=== PATIENT | female | born 1985 | race Caucasian/White ===

== ENCOUNTER 2021-07-04 14:29 | Observation (INO) | payer OTHER, SELFPAY ==
[2021-07-04] VITALS (17 sets, daily range): BP systolic 104–131; BP diastolic 72–84; PULSE 96–114; RESP 12–18; TEMP 36.1–37.2; O2SAT 97–100
--- NOTE | ~2021-07-04 | CT_ITS ---
EXAMINATION: CT abdomen pelvis wo con DATE: 07/04/2021 19:13 INDICATION: Right lower quadrant and right flank pain for 3 days TECHNIQUE: Computed tomography (CT) of the abdomen and pelvis was performed without intravenous contr ast. Automated exposure control and iterative reconstruction technique were employed. Exam dose: 179 .45 mGy-cm total exam DLP. COMPARISON: 09/28/2018 CT abdomen pelvis FINDINGS: There is minimal dependent atelectasis of the lower lobes. Normal heart size. No pericardial or pleural effusion. Small sliding hiatal hernia. The liver, spleen, pancreas, gallbladder, bile and pancreatic ducts are unremarkable on this limited noncontrast examination. No adrenal mass lesion is evident. There is right perinephric fluid and stranding. No urinary tract calculus or hydroureteronephrosis is evident on either side. The urinary bladder is unremarkable. Mild free fluid is noted in the right posterior cul-de-sac. Normal caliber of the abdominal aorta. No intraperitoneal or retroperitoneal or pelvic mass lesion or adenopathy or ascites is noted. Normal appendix. No bowel obstruction, bowel wall thickening, pneumatosis or intraperitoneal free air . No suspicious osteolytic or osteoblastic lesions are noted. IMPRESSION: Right perinephric stranding and mild fluid accumulation, without hydronephrosis. Finding s suggest right pyelonephritis. (If there is concern for possible urinary tract calculus or obstruction, consider repeat examination with IV contrast material, with delayed KUB if necessary) Mild nonspecific free fluid in the right posterior cul-de-sac Normal appendix Reviewed, dictated and finalized at [facility]. Reviewed, dictated and finalized at location [facility]. IMPRESSION: Right perinephric stranding and mild fluid accumulation, without h ydronephrosis. Findings suggest right pyelonephritis. (If there is concern for possible urinary tract calculus or obstruction, consid er repeat examination with IV contrast material, with delayed KUB if necessary) Mild nonspecific free fluid in the right posterior cul-de-sac Normal appendix
[2021-07-04 14:58] LABS: Basophils Absolute Auto 0.1 K/mm3 (0.0-0.1); Basophils Percent Auto 0.4 % (0.2-1.2); Eosinophils Percent Auto 0.1 % (0-4.4); Hemoglobin 14.8 g/dL (12.0-15.0); Immature Granulocyte Absolute 0.16 K/mm3 (0.00-0.031); Immature Granulocyte Percent A 0.8 % (0-0.5); Lymphocytes Percent Auto 2.8 % (18.3-44.2); Mean Corpuscular HGB Conc 32.2 g/dl (32-36); Mean Corpuscular Hemoglobin 31.4 pg (26-34); Mean Corpuscular Volume 97.5 fl (80-100); Mean Platelet Volume 10.9 fl (7.4-10.4); Monocytes Absolute Auto 0.6 K/mm3 (0.1-0.6); Monocytes Percent Auto 2.8 % (2.6-8.5); Neutrophils Absolute Auto 19.7 K/mm3 (1.3-6.7); Neutrophils Percent Auto 93.1 % (45.5-73.1); Platelet Count Result 357 k/mm3 (150-375); Red Blood Count 4.72 M/mm3 (4.2-5.4); White Blood Count 21.1 K/mm3 (4.5-10.0)
--- NOTE | 2021-07-04 15:03 | ED.ABDPAIN ---
HPI - Abdominal Pain General Chief Complaint: Abdominal Pain <ANA LUISA Pollock Last Filed: 07/04/21 21:53> Stated Complaint: abd pain, nausea, poss <Palmira Munoz PA-C - Last Filed: 07/04/21 21:53> Time Seen by Provider: 07/04/21 15:02 <Palmira Munoz PA-C - Last Filed: 07/04/21 21:53> Source: patient <Palmira Munoz PA-C - Last Filed: 07/04/21 21:53> Limitations: no limitations <ANA LUISA Pollock Last Filed: 07/04/21 21:53> History of Present Illness HPI narrative: 25-year-old woman here for evaluation of right lower quadrant and flank pain started several days ago. She states that she had a subjective fever today the fever chills as well. She has been treating herself at home with ibuprofen or Tylenol the pain has been increasing. It is worse when she walks. Denies any urinary symptoms, no history of kidney stones. <ANA LUISA Pollock Last Filed: 07/04/21 21:53> Pain Consistency: constant <ANA LUISA Pollock Last Filed: 07/04/21 21:53> Location: RLQ and R flank <ANA LUISA Pollock Last Filed: 07/04/21 21:53> Quality: stabbing <ANA LUISA Pollock Last Filed: 07/04/21 21:53> Related Data Allergies/Adverse Reactions: Allergies Allergy/AdvReac Type Severity Reaction Status Date / Time cefaclor Allergy Mild Hives Verified 07/04/21 14:42 cephalexin Allergy Mild Hives Verified 07/04/21 14:42 trazodone Allergy Unknown SEIZURE Verified 07/04/21 14:42 <ANA LUISA Pollock Last Filed: 07/04/21 21:53> Review of Systems Review of Systems: All systems reviewed & are unremarkable except as noted in HPI and below <ANA LUISA Pollock Last Filed: 07/04/21 21:53> [facility] Past Medical History Medical History: Medical History Anxiety Successful prior treatment for illicit drug use Crack cocaine. 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 She currently lives with her 8-year-old daughter. She has 2 older sons who she lost custody of due to issues of domestic abuse. She has smoked a pack of cigarettes per day since the age of 16. She drinks 2 beers every other night. She denies any current illicit substance use but used to smoke crack cocaine. She reports that she has been clean since she was 20 or 21 years old. Primary care physician: Dr. Federico Blue Code status: Full code Surrogate decision maker: Mother Smoking packs per day: 1 Smoking cigarettes per day: 20.0 Years smoked: 15 Smoking pack-years: 15.00 Smoking status: Current every day smoker Alcohol intake: current Drinks per week: 3 Substance use: former Substance use type: crack/cocaine Occupation/Education: unemployed Gender identity (if verbalized by the patient): Female Sexual Orientation (if Verbalized by the Patient): Straight or Heterosexual Spiritual care concerns: No <Palmira Munoz PA-C - Last Filed: 07/04/21 21:53> Exam Const: General: healthy appearing and alert <Palmira Munoz PA-C - Last Filed: 07/04/21 21:53> Orientation/consciousness: patient oriented x3 <Palmira Munoz PA-C - Last Filed: 07/04/21 21:53> HENMT: Head: normal to inspection <
[2021-07-04 15:16] LABS: Platelet Estimate Adequate (Adequate)
[2021-07-04 15:17] LABS: Ovalocytes 1+ (NORMAL)
[2021-07-04 15:48] LABS: Alanine Aminotransferase 16 U/L (4-35); Albumin Level 3.7 g/dL (3.5-5.1); Alkaline Phosphatase 87 U/L (38-126); Anion Gap 5 mmol/L (8-16); Aspartate Amino Transferase 24 U/L (14-36); Bilirubin,Total 0.5 mg/dL (0.2-1.3); Blood Urea Nitrogen 17 mg/dL (7-17); Carbon Dioxide 27 mmol/L (22-30); Chloride 103 mmol/L (98-107); Estimated CRCL calculation 77 ml/min; Estimated Glomerular Filt Rate > 60; Glucose 94 mg/dL (65-110); Lipase 19 U/L (23-300); Potassium 4.2 mmol/L (3.4-5.0); Sodium 135 mmol/L (137-145)
[2021-07-04] MEDS: KETOROLAC 30 MG/ML VIAL (*BKC) IV PUSH (16:18)
[2021-07-04] MEDS: SODIUM CHLORIDE 0.9% IV 1,000 ML 999 ML IV CONT (16:19)
[2021-07-04 17:33] LABS: Add Urine Microscopic? YES; Appearance Urine Cloudy (Clear); Bacteria Urine Trace /hpf; Bilirubin Urine Negative (Negative); Blood Urine 2+ (Negative); Color Urine Yellow (Yellow); Glucose Urine UA Negative (Negative); Ketones Urine Trace mg/dL (Negative); Leukocyte Esterase Ur 3+ LEU/UL (Negative); Mucus Urine Rare /lpf; Nitrate Urine Positive (Negative); Protein Urine 2+ mg/dL (Negative); RBC Urine 21-50 /hpf (0-2); Specific Grav Ur 1.024 (1.001-1.035); Squamous Epithelial Cell Urine Moderate /hpf (Few); Urobilinogen Urine Negative mg/dL (<2.0); WBC Clumps Urine Present /HPF; WBC Urine >75 /hpf
[2021-07-04] MEDS: CIPROFLOXACIN 400 MG/D5W 200ML 200 ML 200 MG IVPB (18:09)
[2021-07-04] MEDS: HYDROmorphone HCL INJ (*CRX) 1 MG/ML SYR IV PUSH ×2 (18:09→22:27)
[2021-07-04] MEDS: ONDANSETRON INJ 4 MG/2 ML VIAL IV PUSH (18:23)
--- NOTE | 2021-07-04 21:39 | PC.NURSE ---
mother's number Gauri [phone]
[2021-07-04] MEDS: SODIUM CHLORIDE 0.9% IV 1,000 ML 125 ML IV CONT (22:21)
--- NOTE | 2021-07-04 22:29 | PM.IMHP ---
H&P: HPI History of Present Illness Date/Time: 07/04/21 21:40 Chief Complaint: Right lower back pain Narrative: 35-year-old female with a past medical history of anxiety, depression, illicit substance abuse, tobacco abuse and frequent UTIs presented to the ER via private vehicle due to right flank pain and right lower abdominal pain. The patient reports that she has been feeling ill for 3 days. The she started having right flank pain that is sharp and constant in nature at that time. The pain is gotten progressively worse over the last 3 days. The pain radiates into the right anterior abdomen with movement. She also reports that his pain is worse with deep breathing. The pain is a 10/10 in intensity at its worst is currently a 9/10 in intensity. It is accompanied by urinary frequency and urgency for the last 5 days. She has been feeling feverish in a temperature of 99? at home. She reports that her last UTI was 1 month ago. She did not seek medical care at that time but was having dysuria and frequency and urgency then and treated with cranberry juice. She reported that yesterday while having sex with her partner she was having dyspareunia. She reports that the pain was so bad that she became clammy and started to black out. She reports that her significant other as multiple sex partners and she has heard a rumor that he may have HIV. She denies any vaginal discharge. She is requesting to be tested for HIV. She has been having a mild frontal headache today. She has been having generalized body aches when she started to feel feverish earlier today. She has been had decreased appetite but denies any nausea or vomiting. She thinks that she has lost fiber 6 lb since she started feeling ill. She has been feeling lightheaded with standing. She took Tylenol and ibuprofen this morning without improvement in her pain. She has not received the COVID-19 vaccine. She reports that she has Seroquel prescribed as needed for sleep. However it appears that this has not been refilled since December. She also has p.r.n. clonazepam prescribed in the past but it also has not been filled since December. Review of Systems Review of Systems: 12 systems were reviewed with pertinent positives and negatives per HPI. Except as documented in the HPI, all other systems were reviewed and are negative. [facility] Past Medical History Medical History Anxiety Successful prior treatment for illicit drug use Crack cocaine. 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 She currently lives with her 8-year-old daughter. She has 2 older sons who she lost custody of due to issues of domestic abuse. She has smoked a pack of cigarettes per day since the age of 16. She drinks 2 beers every other night. She denies any current illicit substance use but used to smoke crack cocaine. She reports that she has been clean since she was 20 or 21 years old. Primary care physician: Dr. Federico Blue Code status: Full code Surrogate decision maker: Mother Smoking packs per day: 1 Smoking cigarettes per day: 20.0 Years smoked: 15 Smoking pack-years: 15.00 Smoking status: Current every day smoker Alcohol intake: current Drinks per week: 3 Substance use: former Substance use type: crack/cocaine Occupation/Education: unemployed Gender identity (if verbalized by the patient): Female Sexual Orientation (if Verbalized by the Patient): Straight
--- NOTE | 2021-07-04 22:37 | PC.NURSE ---
This patient, Nguyen Molina, was admitted to Medical Room 340-01. Patient/family oriented to hospital policies and general routines including ID bracelet, bed and alarms, visiting hours, pain management, procedures, bathroom and other care routines, personal items, smoking policy, room service/diet, and visiting hours. Information on how to activate the Rapid Response Team has been discussed. Patient/Family are encouraged to report perceived risks to care and to ask questions if they do not understand what they are told or what they should do.
[2021-07-05] MEDS: ACETAMINOPHEN/ASPIRIN/CAFFEINE 250-250-65 MG TABLET 1 TABLET PO ×2 (00:27→07:36)
[2021-07-05] MEDS: NICOTINE (*PBKC) 4 MG GUM PO (00:27)
[2021-07-05 01:12] LABS: HIV 1/2 Ab P24 Ag Result Negative (Negative)
[2021-07-05] MEDS: QUEtiapine FUMARATE 25 MG TABLET 50 MG PO (01:21)
[2021-07-05] MEDS: clonazePAM (*CRX) 0.5 MG TABLET 1 MG PO (01:21)
[2021-07-05] MEDS: CIPROFLOXACIN 400 MG/D5W 200ML 200 ML 200 MG IVPB (05:06)
[2021-07-05 06:00] VITALS: BP 106/72; PULSE 117; RESP 14; TEMP 36.9; O2SAT 98
[2021-07-05 06:17] LABS: Basophils Absolute Auto 0.1 K/mm3 (0.0-0.1); Basophils Percent Auto 0.3 % (0.2-1.2); Eosinophils Percent Auto 0.1 % (0-4.4); Hematocrit 38.6 % (37.0-47.0); Hemoglobin 12.4 g/dL (12.0-15.0); Immature Granulocyte Absolute 0.95 K/mm3 (0.00-0.031); Lymphocytes Absolute Auto 0.83 K/mm3 (0.9-3.2); Lymphocytes Percent Auto 3.5 % (18.3-44.2); Mean Corpuscular HGB Conc 32.1 g/dl (32-36); Mean Corpuscular Hemoglobin 31.2 pg (26-34); Mean Platelet Volume 10.2 fl (7.4-10.4); Monocytes Absolute Auto 1.7 K/mm3 (0.1-0.6); Monocytes Percent Auto 7.3 % (2.6-8.5); Neutrophils Absolute Auto 20.1 K/mm3 (1.3-6.7); Neutrophils Percent Auto 84.8 % (45.5-73.1); Platelet Count Result 226 k/mm3 (150-375); Red Blood Count 3.98 M/mm3 (4.2-5.4); White Blood Count 23.7 K/mm3 (4.5-10.0)
[2021-07-05 06:22] LABS: Anion Gap 6 mmol/L (8-16); Blood Urea Nitrogen 14 mg/dL (7-17); Calcium 7.8 mg/dL (8.4-10.2); Carbon Dioxide 23 mmol/L (22-30); Chloride 103 mmol/L (98-107); Estimated CRCL calculation 77 ml/min; Estimated Glomerular Filt Rate > 60; Glucose 81 mg/dL (65-110); Potassium 3.1 mmol/L (3.4-5.0); Sodium 132 mmol/L (137-145)
[2021-07-05] MEDS: HYDROmorphone HCL INJ (*CRX) 1 MG/ML SYR IV PUSH ×2 (06:27→10:41)
[2021-07-05 07:03] LABS: Thyroid Stimulating Hormone Reflex 0.477 uIU/mL (0.465-4.68)
[2021-07-05] MEDS: KETOROLAC 30 MG/ML VIAL (*BKC) IV PUSH (07:36)
[2021-07-05] MEDS: SODIUM CHLORIDE 0.9% IV 1,000 ML 125 ML IV CONT (07:39)
[2021-07-05 08:00] VITALS: BP 103/68; PULSE 113; RESP 18; TEMP 37.9; O2SAT 100
--- NOTE | 2021-07-05 10:46 | PC.NURSE ---
Patient going to leave MD SARA aware.
--- NOTE | 2021-07-05 12:41 | PC.NURSE ---
Patient stated she has had the amoxicillin before with no reaction/no issues.
[2021-07-06 07:23] LABS: Rapid Plasma Reagin Non-Reactive (NonReactive)
--- NOTE | 2021-07-16 21:03 | PM.EVENT ---
Event Note Event Note Event Note: Patient left AMA 07/05/2021.
--- NOTE | 2021-08-06 19:23 | PM.DS ---
DS: Admitting Diagnosis Discharge Date 07/05/21 Admitting Diagnosis (1) Pyelonephritis: Code(s): N12 - Tubulo-interstitial nephritis, not specified as acute or chronic Status: Acute Assessment and Plan: Right-sided pyelonephritis. Blood cultures and urine cultures been obtained and are pending. Continue empiric antibiotic therapy with Cipro. The importance of postcoital voiding and appropriate wiping were discussed with patient. Measures such as cranberry juice consumption and or azo tablets was discussed with the patient for preventative measures future. Given reports of dyspareunia and possible STD exposure urine will be sent for GC and chlamydia testing. (2) Sepsis: Qualifiers: Sepsis type: sepsis due to unspecified organism Sepsis acute organ dysfunction status: without acute organ dysfunction Qualified Code(s): A41.9 - Sepsis, unspecified organism Code(s): A41.9 - Sepsis, unspecified organism Status: Acute Assessment and Plan: Mild sepsis criteria present on admission with leukocytosis and tachycardia in the setting of pyelonephritis. Blood cultures and urine cultures pending. Repeat CBC in a.m. (3) Exposure to STD: Code(s): Z20.2 - Contact with and (suspected) exposure to infections with a predominantly sexual mode of transmission Status: Acute Assessment and Plan: She is concerned that her sexual partner may have HIV. She is requesting testing. Will also test patient for syphilis, GC and chlamydia. DS: Discharge Diagnosis Discharge Diagnosis (1) Exposure to STD: Code(s): Z20.2 - Contact with and (suspected) exposure to infections with a predominantly sexual mode of transmission Status: Acute Assessment and Plan: She is concerned that her sexual partner may have HIV. She is requesting testing. Will also test patient for syphilis, GC and chlamydia. (2) Sepsis: Qualifiers: Sepsis type: sepsis due to unspecified organism Sepsis acute organ dysfunction status: without acute organ dysfunction Qualified Code(s): A41.9 - Sepsis, unspecified organism Code(s): A41.9 - Sepsis, unspecified organism Status: Acute Assessment and Plan: Mild sepsis criteria present on admission with leukocytosis and tachycardia in the setting of pyelonephritis. Blood cultures and urine cultures pending. Repeat CBC in a.m. (3) Pyelonephritis: Code(s): N12 - Tubulo-interstitial nephritis, not specified as acute or chronic Status: Acute Assessment and Plan: Right-sided pyelonephritis. Blood cultures and urine cultures been obtained and are pending. Continue empiric antibiotic therapy with Cipro. The importance of postcoital voiding and appropriate wiping were discussed with patient. Measures such as cranberry juice consumption and or azo tablets was discussed with the patient for preventative measures future. Given reports of dyspareunia and possible STD exposure urine will be sent for GC and chlamydia testing. DS: Summary Hospital Course Reason for hospitalization: Lower back pain. Hospital Course: Right lower back pain Narrative: 35-year-old female with a past medical history of anxiety, depression, illicit substance abuse, tobacco abuse and frequent UTIs presented to the ER via private vehicle due to right flank pain and right lower abdominal pain. The patient reports that she has been feeling ill for 3 days. The she started having right flank pain that is sharp and constant in nature at that time. The pain is gotten progressively worse over the last 3 days. The pain radiates into the right anterior abdomen with movement. She also reports that his pain is worse with deep breathing. The pain is a 10/10 in intensity at its worst is currently a 9/10 in intensity. It is accompanied by urinary frequency and urgency for the last 5 days. She has been feeling feverish in a temperature of 99?
== END 2021-07-05 12:00 | disposition home or self-care (01) ==
LOC: ANHED 20:29 → ANH3MED 20:45
PROVIDERS: Emergency Medicine; Admitting Provider Internal Medicine; Emergency Provider General Practice; PCP Internal Medicine Gastroenterology; Visit Provider Internal Medicine
DX: N12 Tubulo-interstitial nephritis, not specified as acute or chronic (principal); A41.9 Sepsis, unspecified organism; F17.210 Nicotine dependence, cigarettes, uncomplicated; Z20.2 Contact with and (suspected) exposure to infections with a predominantly sexual mode of transmission; R10.31 Right lower quadrant pain
CPT/HCPCS: 36415; 74176; 80048; 80053; 81001; 81025; 83690; 84443; 85025; 86592; 86703; 87040; 87077; 87086; 87088; 87186; 87491; 87591; 96361; 96365; 96375; 96376; 99285; A9270; G0378; G0379; G0432; J0744; J1170; J1885; J2405; J7030

== ENCOUNTER 2021-09-23 23:16 | Emergency (ER) | payer OTHER, SELFPAY ==
[2021-09-23 23:36] VITALS: BP 142/105; PULSE 95; RESP 18; TEMP 36.3; O2SAT 100
[2021-09-24 02:08] VITALS: BP 131/111; PULSE 96; RESP 16; O2SAT 94
--- NOTE | 2021-09-24 02:24 | PC.NURSE ---
pt. to bathroom with instructs for clean catch us
--- NOTE | 2021-09-24 02:54 | PC.NURSE ---
Pt refuses IV, refuses CT scan. ERP to be made aware. Pt refusing blood collection. Pt states she only wants COVID swab. Pt to be made aware.
--- NOTE | 2021-09-24 03:04 | PC.NURSE ---
ERP made aware of pt refusals. Pelvic exam set up per ERP request due to report of potential lost tampon.
[2021-09-24 03:15] LABS: Add Urine Microscopic? YES; Appearance Urine Cloudy (Clear); Bacteria Urine Trace /hpf; Bilirubin Urine Negative (Negative); Blood Urine Negative (Negative); Color Urine Yellow (Yellow); Glucose Urine UA Negative (Negative); Ketones Urine 1+ mg/dL (Negative); Leukocyte Esterase Ur Negative LEU/UL (Negative); Mucus Urine Rare /lpf; Nitrate Urine Positive (Negative); Protein Urine 1+ mg/dL (Negative); RBC Urine 0-2 /hpf (0-2); Specific Grav Ur 1.024 (1.001-1.035); Squamous Epithelial Cell Urine Few /hpf (Few); Urobilinogen Urine Negative mg/dL (<2.0); WBC Urine 0-3 /hpf
--- NOTE | 2021-09-24 03:42 | ED.GENADULT ---
HPI - General Adult General Chief complaint: Nausea/Vomiting/Diarrhea Stated complaint: Vomiting Time Seen by Provider: 09/24/21 02:08 History of Present Illness HPI narrative: Patient is a 38-year-old female who presents the emergency department with chief complaint of possible retained tampon and body aches and chills. Patient states that her significant other has had some chills and body aches recently and tonight while they were having intercourse he thought there may have been something that was inside of her. The patient states that she is concerned that she may have a retained tampon even though she remembers removing the tampon previously. The patient states that she tried to check her self for a retained foreign body but find anything in her significant other checked using his genitalia and reported that he felt something Related Data Allergies Allergy/AdvReac Type Severity Reaction Status Date / Time cefaclor Allergy Mild Hives Verified 09/24/21 02:17 cephalexin Allergy Mild Hives Verified 09/24/21 02:17 trazodone Allergy Unknown SEIZURE Verified 09/24/21 02:17 Review of Systems Review of Systems: A 10 system review of systems was completed on the patient and is negative except for what is stated in the HPI. Nursing and ancillary documentation was reviewed. [facility] Past Medical History Medical History Anxiety Successful prior treatment for illicit drug use Crack cocaine. 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 She currently lives with her 8-year-old daughter. She has 2 older sons who she lost custody of due to issues of domestic abuse. She has smoked a pack of cigarettes per day since the age of 16. She drinks 2 beers every other night. She denies any current illicit substance use but used to smoke crack cocaine. She reports that she has been clean since she was 20 or 21 years old. Primary care physician: Dr. Federico Blue Code status: Full code Surrogate decision maker: Mother Smoking packs per day: 1 Smoking cigarettes per day: 20.0 Years smoked: 15 Smoking pack-years: 15.00 Smoking status: Current every day smoker Alcohol intake: current Drinks per week: 3 Substance use: former Substance use type: crack/cocaine Gender identity (if verbalized by the patient): Female Sexual Orientation (if Verbalized by the Patient): Straight or Heterosexual Spiritual care concerns: No Exam Narrative: GENERAL: Well-appearing, well-nourished, and in no acute distress. HEAD: Normocephalic, atraumatic. EYES: PERRLA and EOMI. ENT: Nares clear, no rhinorrhea or epistaxis. Mucous membranes moist. NECK: Supple. CHEST: Clear to auscultation. No respiratory distress. HEART: Regular rate and rhythm. No murmur heard. Normal peripheral pulses. ABDOMEN: Soft, nontender, nondistended, normal active bowel sounds. : No foreign body in the vaginal vault EXTREMITIES: Normal range of motion. No edema. SKIN: Warm, dry, no rash. NEURO: No focal deficits. Alert and oriented x3. PSYCH: Normal mood and affect. Course Course Emergency Course: The patient was offered further evaluation but the patient just wanted a quick look pelvic to see if she had lost a tampon and reported that she just wanted to be tested for COVID-19 Vital Signs Vital signs: Vital Signs Temperature 36.3 C L 09/23/21 23:36 Pulse Rate 95 09/23/21 23:36 Respiratory Rate 18 09/23/21 23:36 Blood Pres
[2021-09-24 04:07] LABS: SARS-CoV-2 RNA PCR Positive
== END 2021-09-24 03:48 | disposition left against medical advice (07) ==
PROVIDERS: Emergency Provider Emergency Medicine; PCP Internal Medicine Gastroenterology
DX: U07.1 COVID-19 (principal); F41.9 Anxiety disorder, unspecified; G47.30 Sleep apnea, unspecified
CPT/HCPCS: 81001; 81025; 99283; C9803; U0003; U0005

== ENCOUNTER 2022-03-20 11:41 | Emergency (ER) | payer OTHER, SELFPAY ==
[2022-03-20] VITALS (11 sets, daily range): BP systolic 67–105; BP diastolic 44–78; PULSE 75; RESP 18; TEMP 36.3; O2SAT 99–100
--- NOTE | ~2022-03-20 | CT_ITS ---
EXAMINATION: CT abdomen pelvis w con DATE: 03/20/2022 14:09 INDICATION: Right lower quadrant and suprapubic pain. TECHNIQUE: Computed tomography (CT) of the abdomen and pelvis was performed with 100 cc Omnipaque 300 intravenous contrast. The dose-length product was 239.85 mGy-cm. Automated exposure control and iter ative reconstruction technique were employed. COMPARISON: CT dated 07/04/2021. FINDINGS: Lung bases unremarkable. No significant pleural or pericardial effusion. Heart size normal. The liver, spleen, pancreas, adrenal glands and kidneys are unremarkable. Gallbladder is present. No nobstructive bowel gas pattern. There is mild bladder wall thickening with punctate nondependent gas in the bladder lumen. Normal appendix. No significant vascular abnormality. No lymphadenopathy. No ac adria osseous abnormality. IMPRESSION: 1. Bladder wall thickening with subtle perivesical fatty infiltration, suspicious for cystitis. Clini elvis correlate. Punctate foci of gas in the bladder lumen, possibly from recent instrumentation. Reviewed, dictated and finalized at location A. IMPRESSION: 1. Bladder wall thickening with subtle perivesical fatty infiltration, suspicio us for cystitis. Clinically correlate. Punctate foci of gas in the bladder lume n, possibly from recent instrumentation.
--- NOTE | 2022-03-20 12:12 | ED.ABDPAIN ---
HPI - Abdominal Pain General Chief Complaint: Abdominal Pain <ANA LUISA An Last Filed: 03/20/22 18:39> Stated Complaint: abd/suprapubic pain <ANA LUISA An Last Filed: 03/20/22 18:39> Time Seen by Provider: 03/20/22 11:52 <ANA LUISA An Last Filed: 03/20/22 18:39> Source: patient <ANA LUISA An Last Filed: 03/20/22 18:39> Mode of arrival: EMS <ANA LUISA An Last Filed: 03/20/22 18:39> Limitations: no limitations <ANA LUISA An Filed: 03/20/22 18:39> History of Present Illness HPI narrative: Patient is a 36 y/o female who presents to the ED via EMS with c/o suprapubic ABD pain. Patient reports the pain began suddenly approximately 30 minutes prior to arrival when she was waking up. Described as a stabbing pain. She has not tried anything for the pain before calling for EMS. Patient also reports having nausea associated with the pain, and diarrhea for the last 3 days. Denies any rectal bleeding. Denies any vomiting. Denies any recent fever, chills, cough, cold symptoms, dysuria, hematuria, urinary frequency. <ANA LUISA An Last Filed: 03/20/22 18:39> Related Data Allergies/Adverse Reactions: Allergies Allergy/AdvReac Type Severity Reaction Status Date / Time cefaclor Allergy Mild Hives Verified 09/24/21 02:17 cephalexin Allergy Mild Hives Verified 09/24/21 02:17 trazodone Allergy Unknown SEIZURE Verified 09/24/21 02:17 <ANA LUISA An Last Filed: 03/20/22 18:39> Review of Systems Review of Systems: CONSTITUTIONAL: Denies fever, chills, or sweats. CARDIOVASCULAR: Denies chest pain. RESPIRATORY: Denies dyspnea. GASTROINTESTINAL: Reports suprapubic abdominal pain, nausea, diarrhea. Denies rectal bleeding, vomiting. GENITOURINARY: Denies dysuria, frequency, or hematuria. SKIN: Denies rash or itching. MUSCULOSKELETAL: Denies back pain. NEUROLOGIC: Denies headache, numbness, or weakness. <Krystyna Suarez PA-C - Last Filed: 03/20/22 18:39> All systems reviewed & are unremarkable except as noted in HPI and below <Krystyna Suarez PA-C - Last Filed: 03/20/22 18:39> [facility] Past Medical History Medical History: Medical History Anxiety Successful prior treatment for illicit drug use Crack cocaine. 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 She currently lives with her 8-year-old daughter. She has 2 older sons who she lost custody of due to issues of domestic abuse. She has smoked a pack of cigarettes per day since the age of 16. She drinks 2 beers every other night. She denies any current illicit substance use but used to smoke crack cocaine. She reports that she has been clean since she was 20 or 21 years old. Primary care physician: Dr. Federico Blue Code status: Full code Surrogate decision maker: Mother Smoking packs per day: 1 Smoking cigarettes per day: 20.0 Years smoked: 15 Smoking pack-years: 15.00 Smoking status: Current every day smoker Alcohol intake: current Drinks per week: 3 Substance use: former Substance use type: crack/cocaine Gender identity (if verbalized by the patient): Female Sexual Orientation (if Verba
[2022-03-20] MEDS: SODIUM CHLORIDE 0.9% IV 1,000 ML 999 ML IV CONT ×2 (12:39→14:43)
[2022-03-20] MEDS: ONDANSETRON INJ 4 MG/2 ML VIAL IV PUSH (12:39)
[2022-03-20 12:42] LABS: Basophils Percent Auto 0.3 % (0.2-1.2); Eosinophils Absolute Auto 0.4 K/mm3 (0-0.3); Hematocrit 36.1 % (37.0-47.0); Hemoglobin 11.6 g/dL (12.0-15.0); Immature Granulocyte Absolute 0.05 K/mm3 (0.00-0.031); Immature Granulocyte Percent A 0.4 % (0-0.5); Lymphocytes Absolute Auto 1.66 K/mm3 (0.9-3.2); Lymphocytes Percent Auto 12.1 % (18.3-44.2); Mean Corpuscular HGB Conc 32.1 g/dl (32-36); Mean Corpuscular Hemoglobin 30.1 pg (26-34); Mean Corpuscular Volume 93.5 fl (80-100); Mean Platelet Volume 9.4 fl (7.4-10.4); Monocytes Percent Auto 7.4 % (2.6-8.5); Neutrophils Absolute Auto 10.5 K/mm3 (1.3-6.7); Neutrophils Percent Auto 76.8 % (45.5-73.1); Platelet Count Result 282 k/mm3 (150-375); Red Blood Count 3.86 M/mm3 (4.2-5.4); Red Cell Distribution Width 12.6 % (11.5-14.5); White Blood Count 13.7 K/mm3 (4.5-10.0)
[2022-03-20 12:56] LABS: Alanine Aminotransferase 10 U/L (6-35); Alkaline Phosphatase 46 U/L (38-126); Anion Gap 7 mmol/L (8-16); Aspartate Amino Transferase 17 U/L (14-36); Bilirubin,Total 0.3 mg/dL (0.2-1.3); Blood Urea Nitrogen 22 mg/dL (7-17); Calcium 8.3 mg/dL (8.4-10.2); Carbon Dioxide 20 mmol/L (22-30); Chloride 109 mmol/L (98-107); Estimated CRCL calculation 88 ml/min; Estimated Glomerular Filt Rate > 60; Glucose 93 mg/dL (65-110); Lipase 34 U/L (23-300); Sodium 136 mmol/L (137-145)
[2022-03-20 13:15] LABS: Appearance Urine Clear (Clear); Bilirubin Urine Negative (Negative); Blood Urine Negative (Negative); Color Urine Yellow (Yellow); Glucose Urine UA Negative (Negative); Ketones Urine Negative (Negative); Leukocyte Esterase Ur Negative LEU/UL (Negative); Nitrate Urine Negative (Negative); Protein Urine Negative (Negative); Specific Grav Ur 1.025 (1.001-1.035); Urobilinogen Urine 0.2 mg/dL (<2.0)
[2022-03-20 13:25] LABS: Add Urine Microscopic? NO
--- NOTE | 2022-03-20 14:43 | PC.NURSE ---
Holding IV morphine at this time due to pt's bp being low x3. 2nd liter IV NS initiated
[2022-03-20] MEDS: KETOROLAC 30 MG/ML VIAL (*BKC) IV PUSH (15:27)
== END 2022-03-20 16:12 | disposition home or self-care (01) ==
PROVIDERS: Physician Assistant; Emergency Provider Emergency Medicine; PCP Internal Medicine Gastroenterology
DX: R10.30 Lower abdominal pain, unspecified (principal); F17.210 Nicotine dependence, cigarettes, uncomplicated; R93.41 Abnormal radiologic findings on diagnostic imaging of renal pelvis, ureter, or bladder
CPT/HCPCS: 36415; 74177; 80053; 81003; 81025; 83690; 85025; 87661; 96361; 96374; 96375; 99284; J0131; J1885; J2405; J7030; Q9967

== ENCOUNTER 2022-09-11 19:25 | Observation (INO) | payer OTHER, SELFPAY ==
--- NOTE | ~2022-09-11 | CT_ITS ---
EXAMINATION: CT abdomen pelvis w con DATE: 09/12/2022 00:30 INDICATION: Right abdominal pain. Fever. Nausea. TECHNIQUE: Computed tomography (CT) of the abdomen and pelvis was performed with 100 mL Omnipaque 350 intravenous contrast. Automated exposure control and iterative reconstruction technique were employe d. The dose-length product was 184.96 mGy-cm. COMPARISON: CT abdomen and pelvis 03/20/2022 FINDINGS: The visualized portions of the lung bases demonstrate mild atelectasis. No pleural effusion . The heart size is normal. No pericardial effusion. There is periportal edema in the liver. The gall bladder is normal in size. The spleen is normal. Pancreas divisum is noted. The adrenal glands are no rmal. There is urothelial thickening in the right renal pelvis. There is cortical thinning of the kid neys. There are bilateral striated contrast nephrograms, right worse than left, consistent with pyelo nephritis. There are no dilated loops of bowel. The appendix is normal. There are no pathologically e nlarged lymph nodes. There is no free intraperitoneal fluid. There is mild lumbar spondylosis. IMPRESSION: 1. Bilateral pyelonephritis, right worse than left. Reviewed, dictated and finalized at location A. [facility]
[2022-09-11 19:27] VITALS: BP 108/84; PULSE 108; RESP 18; TEMP 36.7; O2SAT 100
[2022-09-11 20:29] LABS: Add Urine Microscopic? YES; Appearance Urine Cloudy (Clear); Bilirubin Urine Negative (Negative); Blood Urine Trace-Intact (Negative); Color Urine Yellow (Yellow); Glucose Urine UA Negative (Negative); Ketones Urine Negative (Negative); Leukocyte Esterase Ur Negative LEU/UL (Negative); Nitrate Urine Negative (Negative); Protein Urine 1+ mg/dL (Negative); Urobilinogen Urine 0.2 mg/dL (<2.0); pH Urine 5.5 (5.0-9.0)
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
[2022-09-11 20:36] LABS: Bacteria Urine Trace /hpf; Mucus Urine Rare /lpf; Squamous Epithelial Cell Urine Many /hpf (Few); WBC Urine 21-30 /hpf
[2022-09-11 20:51] LABS: Basophils Absolute Auto 0.1 K/mm3 (0.0-0.1); Basophils Percent Auto 0.3 % (0.2-1.2); Eosinophils Absolute Auto 0.1 K/mm3 (0-0.3); Eosinophils Percent Auto 0.2 % (0-4.4); Hematocrit 36.5 % (37.0-47.0); Hemoglobin 11.8 g/dL (12.0-15.0); Immature Granulocyte Percent A 1.5 % (0-0.5); Lymphocytes Absolute Auto 0.83 K/mm3 (0.9-3.2); Lymphocytes Percent Auto 3.1 % (18.3-44.2); Mean Corpuscular HGB Conc 32.3 g/dl (32-36); Mean Corpuscular Hemoglobin 30.5 pg (26-34); Mean Corpuscular Volume 94.3 fl (80-100); Mean Platelet Volume 9.5 fl (7.4-10.4); Monocytes Absolute Auto 2.2 K/mm3 (0.1-0.6); Monocytes Percent Auto 8.2 % (2.6-8.5); Neutrophils Percent Auto 86.7 % (45.5-73.1); Platelet Count Result 317 k/mm3 (150-375); Red Blood Count 3.87 M/mm3 (4.2-5.4); Red Cell Distribution Width 16.3 % (11.5-14.5); White Blood Count 26.5 K/mm3 (4.5-10.0)
[2022-09-11] MEDS: SODIUM CHLORIDE 0.9% IV 1,000 ML 999 ML IV CONT ×2 (20:58→22:36)
[2022-09-11 22:48] LABS: Influenza A QL RT-PCR Negative (Negative); Influenza B QL RT-PCR Negative (Negative); SARS-CoV-2 RNA PCR Negative
[2022-09-11] MEDS: KETOROLAC 30 MG/ML VIAL (*BKC) IV PUSH (23:12)
[2022-09-11 23:22] LABS: Lactic Acid Reflex 1.4 mmol/L (0.7-2.0)
[2022-09-12 00:04] LABS: Alanine Aminotransferase 51 U/L (6-35); Albumin Level 3.7 g/dL (3.5-5.1); Alkaline Phosphatase 113 U/L (38-126); Anion Gap 7 mmol/L (8-16); Aspartate Amino Transferase 126 U/L (14-36); Bilirubin,Total 0.3 mg/dL (0.2-1.3); Blood Urea Nitrogen 20 mg/dL (7-17); Calcium 8.1 mg/dL (8.4-10.2); Carbon Dioxide 22 mmol/L (22-30); Chloride 108 mmol/L (98-107); Estimated CRCL calculation 76 ml/min; Estimated Glomerular Filt Rate > 60; Glucose 105 mg/dL (65-110); Lipase 25 U/L (23-300); Potassium 3.3 mmol/L (3.4-5.0); Sodium 137 mmol/L (137-145)
[2022-09-12] MEDS: MORPHINE SULFATE (*CRX) 4 MG/ML INJ IV PUSH (00:08)
[2022-09-12] MEDS: SODIUM CHLORIDE 0.9% IV 1,000 ML 125 ML IV CONT ×3 (01:45→18:07)
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
[2022-09-12 03:21] VITALS: BP 121/76; PULSE 68; RESP 16; TEMP 36.7; O2SAT 98
[2022-09-12 03:31] VITALS: BP 100/69; PULSE 93; RESP 17; TEMP 36.2; O2SAT 100
[2022-09-12] MEDS: ONDANSETRON INJ 4 MG/2 ML VIAL IV PUSH ×3 (03:54→18:02)
[2022-09-12] MEDS: HYDROcodone/acetaminophen (*CRX) 5-325 MG TABLET 1 TAB PO ×5 (04:08→23:26)
[2022-09-12 04:11] VITALS: BMI 20.1
--- NOTE | 2022-09-12 04:16 | ADMGEN ---
This patient, Nguyen Molina, was admitted to 3 [facility] Surg Room 333-01 at 0331. Patient/family oriented to hospital policies and general routines including ID bracelet, bed and alarms, visiting hours, pain management, procedures, bathroom and other care routines, personal items, smoking policy, room service/diet, and visiting hours. Information on how to activate the Rapid Response Team has been discussed. Patient/Family are encouraged to report perceived risks to care and to ask questions if they do not understand what they are told or what they should do.
[2022-09-12 06:00] VITALS: BP 103/85; PULSE 106; RESP 19; TEMP 35.7; O2SAT 98
[2022-09-12] MEDS: HEPARIN SODIUM 5,000 UNITS/ML VIAL 5000 UNITS SUB-Q (10:49)
[2022-09-12] MEDS: ACETAMINOPHEN 325 MG TABLET 650 MG PO ×2 (10:52→20:30)
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
[2022-09-12] MEDS: QUEtiapine FUMARATE 25 MG TABLET 50 MG PO ×2 (12:51→20:32)
[2022-09-12] MEDS: MAG HYDROX/AL HYDROX/SIMETH 30 ML UDC PO (18:02)
[2022-09-12] MEDS: BISACODYL 5 MG TABLET EC PO (18:03)
[2022-09-12] MEDS: NICOTINE (*PBKC) 4 MG GUM PO (18:03)
--- NOTE | 2022-09-12 20:37 | PC.NURSE ---
Patient states her stomach is too bloated for IV fluids. Informed her that IV fluids will not settle in stomach. Patient requests that IV fluids be stopped. Encouraged her to try to pass air or have a BM for relief. Educated patient on slowing down her fluid intake of soda and juice if she is feeling this way. Patient also states her pain is not being controlled. Informed her that she is not due for a Delta yet. Gave tylenol for relief. Patient is upset and emotional about this issue.
[2022-09-12 22:00] VITALS: BP 99/52; PULSE 101; RESP 16; TEMP 36.8; O2SAT 98
[2022-09-12 22:53] LABS: Barbiturate Screen Urine Negative (Negative); Benzodiazepines Screen Urine Negative (Negative)
[2022-09-12 23:09] LABS: Cannabinoid Screen Urine Negative (Negative); Cocaine Screen Urine Negative (Negative); Methadone Screen Urine Negative (Negative); Opiate Screen Urine Negative (Negative); Phencyclidine Screen Urine Negative (Negative)
[2022-09-12 23:45] LABS: Amphetamine Screen Urine Positive (Negative)
--- NOTE | 2022-09-13 03:52 | PC.NURSE ---
Addendum entered by Patria Haas RN 09/13/22 04:16: Patient is becoming verbally aggressive with staff. Patient is requesting nyquil. Informed her she was given seroquel for sleep. Stated that I could not do my job properly and is now refusing care from me. Charge nurse went to talk with patient. She became verbally aggressive towards charge nurse. Patient threatened to leave AMA. Stated that she cannot breathe. Pulse ox was 98% when checked. Original Note: Patient is becoming verbally aggressive with staff. Patient is requesting nyquil. Informed her that we gave her seroquel for sleep. Stated that nurse cannot do her job. Refusing care from nurse at this time. Charge nurse went to talk with patient. She became verbally aggressive towards charge nurse. Patient threatened to leave AMA. Stated that she cannot breathe. Pulse ox was 98% when checked.
--- NOTE | 2022-09-13 05:01 | PC.NURSE ---
Patient is requesting more juices. I have encouraged patient multiple times throughout night to drink some water. She has been requesting multiple juices, milk, and soda throughout night. With her complaints of stomach discomfort, I do not feel comfortable giving her giving her any other liquids but water at this time until she can be further evaluated by the physican.
[2022-09-13 05:45] VITALS: BP 99/75; PULSE 90; RESP 16; TEMP 36.7; O2SAT 96
[2022-09-13] MEDS: HYDROcodone/acetaminophen (*CRX) 5-325 MG TABLET 1 TAB PO ×4 (05:50→20:50)
[2022-09-13 06:48] LABS: Basophils Percent Auto 0.2 % (0.2-1.2); Eosinophils Absolute Auto 0.3 K/mm3 (0-0.3); Eosinophils Percent Auto 1.5 % (0-4.4); Hematocrit 36.8 % (37.0-47.0); Hemoglobin 11.1 g/dL (12.0-15.0); Immature Granulocyte Absolute 0.13 K/mm3 (0.00-0.031); Immature Granulocyte Percent A 0.7 % (0-0.5); Lymphocytes Absolute Auto 1.95 K/mm3 (0.9-3.2); Lymphocytes Percent Auto 10.2 % (18.3-44.2); Mean Corpuscular HGB Conc 30.2 g/dl (32-36); Mean Corpuscular Hemoglobin 29.7 pg (26-34); Mean Corpuscular Volume 98.4 fl (80-100); Monocytes Absolute Auto 2.1 K/mm3 (0.1-0.6); Monocytes Percent Auto 10.9 % (2.6-8.5); Neutrophils Absolute Auto 14.7 K/mm3 (1.3-6.7); Neutrophils Percent Auto 76.5 % (45.5-73.1); Platelet Count Result 297 k/mm3 (150-375); Red Blood Count 3.74 M/mm3 (4.2-5.4); Red Cell Distribution Width 16.7 % (11.5-14.5); White Blood Count 19.2 K/mm3 (4.5-10.0)
[2022-09-13 07:35] LABS: Alanine Aminotransferase 27 U/L (6-35); Albumin Level 2.5 g/dL (3.5-5.1); Alkaline Phosphatase 92 U/L (38-126); Anion Gap 3 mmol/L (8-16); Aspartate Amino Transferase 25 U/L (14-36); Bilirubin,Total 0.2 mg/dL (0.2-1.3); Blood Urea Nitrogen 10 mg/dL (7-17); Calcium 7.6 mg/dL (8.4-10.2); Carbon Dioxide 22 mmol/L (22-30); Chloride 112 mmol/L (98-107); Estimated CRCL calculation 88 ml/min; Estimated Glomerular Filt Rate > 60; Glucose 82 mg/dL (65-110); Potassium 4.1 mmol/L (3.4-5.0); Sodium 137 mmol/L (137-145)
[2022-09-13] MEDS: QUEtiapine FUMARATE 25 MG TABLET 50 MG PO ×2 (09:02→20:52)
[2022-09-13] MEDS: ACETAMINOPHEN 325 MG TABLET 650 MG PO ×2 (09:02→17:46)
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
[2022-09-13 15:00] VITALS: BP 103/62; PULSE 98; RESP 18; TEMP 36.5; O2SAT 98
[2022-09-13] MEDS: NICOTINE (*PBKC) 14 MG PATCH 1 PATCH TRANSDERM (17:35)
[2022-09-13] MEDS: NICOTINE (*PBKC) 4 MG GUM PO (17:46)
[2022-09-13] MEDS: BISACODYL 5 MG TABLET EC PO (20:51)
[2022-09-13 22:24] VITALS: BP 119/83; PULSE 98; RESP 16; TEMP 36.4; O2SAT 99
[2022-09-14] MEDS: NICOTINE (*PBKC) 4 MG GUM PO (00:22)
[2022-09-14] MEDS: MAG HYDROX/AL HYDROX/SIMETH 30 ML UDC PO (00:24)
[2022-09-14] MEDS: ACETAMINOPHEN 325 MG TABLET 650 MG PO (01:27)
--- NOTE | 2022-09-14 03:35 | PC.NURSE ---
Patient's IV infiltrated while getting Levaquin. Patient will not let me put in new IV. States she wants a professional to do it. Cannot restart antibiotic. Patient is refusing. Physician will be notified.
[2022-09-14 05:36] VITALS: BP 133/94; PULSE 108; RESP 18; TEMP 36.8; O2SAT 99
[2022-09-14 07:30] LABS: Anion Gap 4 mmol/L (8-16); Blood Urea Nitrogen 7 mg/dL (7-17); Calcium 8.2 mg/dL (8.4-10.2); Carbon Dioxide 25 mmol/L (22-30); Chloride 103 mmol/L (98-107); Estimated CRCL calculation 103 ml/min; Estimated Glomerular Filt Rate > 60; Glucose 103 mg/dL (65-110); Potassium 3.5 mmol/L (3.4-5.0); Sodium 132 mmol/L (137-145)
[2022-09-14 07:36] LABS: Basophils Percent Auto 0.2 % (0.2-1.2); Eosinophils Absolute Auto 0.3 K/mm3 (0-0.3); Eosinophils Percent Auto 2.5 % (0-4.4); Hematocrit 34.9 % (37.0-47.0); Hemoglobin 11.1 g/dL (12.0-15.0); Immature Granulocyte Absolute 0.06 K/mm3 (0.00-0.031); Immature Granulocyte Percent A 0.5 % (0-0.5); Lymphocytes Percent Auto 16.4 % (18.3-44.2); Mean Corpuscular HGB Conc 31.8 g/dl (32-36); Mean Corpuscular Hemoglobin 29.4 pg (26-34); Mean Corpuscular Volume 92.6 fl (80-100); Mean Platelet Volume 9.6 fl (7.4-10.4); Monocytes Absolute Auto 1.4 K/mm3 (0.1-0.6); Monocytes Percent Auto 11.3 % (2.6-8.5); Neutrophils Absolute Auto 8.4 K/mm3 (1.3-6.7); Neutrophils Percent Auto 69.1 % (45.5-73.1); Platelet Count Result 379 k/mm3 (150-375); Red Blood Count 3.77 M/mm3 (4.2-5.4); Red Cell Distribution Width 16.7 % (11.5-14.5); White Blood Count 12.2 K/mm3 (4.5-10.0)
[2022-09-14] MEDS: HYDROcodone/acetaminophen (*CRX) 5-325 MG TABLET 1 TAB PO (08:19)
[2022-09-14] MEDS: levoFLOXacin 750 MG TABLET PO (08:20)
[2022-09-14] MEDS: NICOTINE (*PBKC) 14 MG PATCH 1 PATCH TRANSDERM (08:20)
[2022-09-14 08:25] VITALS: TEMP 36.9
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
== END 2022-09-14 13:25 | disposition home or self-care (01) ==
LOC: ANHED 09-12 02:24 → ANH3MEDSUR 09-12 03:21
PROVIDERS: Emergency Medicine; Admitting Provider Student in an Organized Health Care Education/Training Program; Emergency Provider Emergency Medicine; PCP Internal Medicine Gastroenterology; Visit Provider Chiropractor
DX: A41.9 Sepsis, unspecified organism (principal); N10 Acute pyelonephritis; F17.210 Nicotine dependence, cigarettes, uncomplicated; F41.9 Anxiety disorder, unspecified; F32.A Depression, unspecified; T23.301A Burn of third degree of right hand, unspecified site, initial encounter; X12.XXXA Contact with other hot fluids, initial encounter; Z79.899 Other long term (current) drug therapy; Z20.822 Contact with and (suspected) exposure to COVID-19
CPT/HCPCS: 36415; 74177; 80048; 80053; 80307; 81001; 81025; 83605; 83690; 85025; 87040; 87070; 87086; 87491; 87591; 87636; 87808; 96361; 96365; 96374; 96375; 96376; 99285; A9270; G0378; G0379; J1644; J1885; J1956; J2270; J2405; J7030; Q9967

== ENCOUNTER 2022-11-09 14:52 | Emergency (ER) | payer OTHER, SELFPAY ==
[2022-11-09 15:01] VITALS: PULSE 102; RESP 20; TEMP 36.8; O2SAT 100
[2022-11-09 15:22] VITALS: BP 109/80
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
== END 2022-11-09 16:11 | disposition home or self-care (01) ==
LOC: ANHED 15:50
PROVIDERS: Emergency Provider Emergency Medicine; PCP Internal Medicine Gastroenterology
DX: F10.129 Alcohol abuse with intoxication, unspecified (principal); F17.210 Nicotine dependence, cigarettes, uncomplicated; F41.9 Anxiety disorder, unspecified
CPT/HCPCS: 99281

== ENCOUNTER 2023-04-21 10:38 | Emergency (ER) | payer OTHER, SELFPAY ==
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
[2023-04-21 10:53] VITALS: BP 117/84; PULSE 93; RESP 16; TEMP 35.8; O2SAT 100
== END 2023-04-21 11:40 | disposition short-term general hospital (02) ==
PROVIDERS: Emergency Provider Nurse Practitioner Family; PCP Family Medicine
DX: S01.111A Laceration without foreign body of right eyelid and periocular area, initial encounter (principal); W19.XXXA Unspecified fall, initial encounter; F17.210 Nicotine dependence, cigarettes, uncomplicated; F41.9 Anxiety disorder, unspecified
CPT/HCPCS: 99212; G0463

== ENCOUNTER 2023-04-22 21:21 | Emergency (ER) | payer OTHER, SELFPAY ==
--- NOTE | ~2023-04-22 | CT_ITS ---
EXAMINATION: CT brain wo con DATE: 04/23/2023 02:44 INDICATION: Head injury. TECHNIQUE: Computed tomography (CT) of the head was performed without intravenous contrast. The mA wa s adjusted according to patient size. Iterative reconstruction technique was employed. The dose-lengt h product was 605.33 mGy-cm. COMPARISON: None FINDINGS: There is no intracranial hemorrhage, acute infarction, or abnormal intracranial mass lesion . The ventricles are normal in size. There is mild mucosal thickening in the paranasal sinuses. The o rbits are normal. The mastoid air cells are normal. IMPRESSION: 1. Normal brain. Reviewed, dictated and finalized at location E. IMPRESSION: 1. Normal brain.
--- NOTE | ~2023-04-22 | CT_ITS ---
EXAMINATION: CT facial bones w con DATE: 04/23/2023 03:03 INDICATION: Right eyelid injury and redness and swelling and drainage. TECHNIQUE: Computed tomography (CT) of the facial bones and maxillofacial region was performed with 7 5 mL Omnipaque 350 intravenous contrast. Automated exposure control and iterative reconstruction tech gdgtque were employed. The dose-length product was 287.87 mGy-cm. COMPARISON: None. FINDINGS: There is right periorbital soft tissue swelling. There is frontal scalp soft tissue swellin g. The orbits are normal. There is mild plaque in proximal right internal carotid artery with 0% sten osis relative to normal distal artery lumen diameter. The mastoid air cells are normal. There is mild mucosal thickening in the paranasal sinuses. There is rightward deviation of the nasal septum. There are old fracture deformities of the nasal bones. There is mild cervical spondylosis. IMPRESSION: 1. Normal orbits. Reviewed, dictated and finalized at location E. IMPRESSION: 1. Normal orbits.
[2023-04-22 21:27] VITALS: BP 155/96; PULSE 95; RESP 16; TEMP 36.4; O2SAT 99
[2023-04-22 23:13] VITALS: BP 104/81; PULSE 95; TEMP 36.6; O2SAT 99
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
[2023-04-23] MEDS: KETOROLAC 15 MG/ML VIAL (*BKC) IV PUSH (01:59)
[2023-04-23 02:18] LABS: Basophils Absolute Auto 0.1 K/mm3 (0.0-0.1); Basophils Percent Auto 0.6 % (0.2-1.2); Eosinophils Absolute Auto 0.5 K/mm3 (0-0.3); Eosinophils Percent Auto 5.4 % (0-4.4); Hematocrit 42.6 % (37.0-47.0); Hemoglobin 13.8 g/dL (12.0-15.0); Immature Granulocyte Absolute 0.02 K/mm3 (0.00-0.031); Immature Granulocyte Percent A 0.2 % (0-0.5); Lymphocytes Percent Auto 35.7 % (18.3-44.2); Mean Corpuscular HGB Conc 32.4 g/dl (32-36); Mean Corpuscular Hemoglobin 31.1 pg (26-34); Mean Corpuscular Volume 95.9 fl (80-100); Mean Platelet Volume 9.3 fl (7.4-10.4); Monocytes Absolute Auto 0.8 K/mm3 (0.1-0.6); Neutrophils Absolute Auto 4.3 K/mm3 (1.3-6.7); Neutrophils Percent Auto 49.1 % (45.5-73.1); Platelet Count Result 369 k/mm3 (150-375); Red Blood Count 4.44 M/mm3 (4.2-5.4); Red Cell Distribution Width 13.2 % (11.5-14.5); White Blood Count 8.7 K/mm3 (4.5-10.0)
[2023-04-23 02:28] LABS: Anion Gap 7 mmol/L (8-16); Blood Urea Nitrogen 19 mg/dL (7-17); CRP 0.6 mg/dL (<1.0); Calcium 8.9 mg/dL (8.4-10.2); Carbon Dioxide 27 mmol/L (22-30); Chloride 104 mmol/L (98-107); Estimated CRCL calculation 82 ml/min; Estimated Glomerular Filt Rate > 60; Glucose 98 mg/dL (65-110); Potassium 3.5 mmol/L (3.4-5.0); Sodium 138 mmol/L (137-145)
[2023-04-23 03:12] LABS: Erythrocyte Sedimentation Rate 13 mm/hr (0-20)
[2023-04-23] MEDS: ACETAMINOPHEN 500 MG TABLET 1000 MG PO (03:15)
[2023-04-23] MEDS: ERYTHROMYCIN OPHTH OINTMENT 1 GM TUBE 1 APPLIC RIGHT EYE (04:10)
[2023-04-23 06:09] VITALS: BP 127/80; PULSE 79; RESP 14; O2SAT 99
== END 2023-04-23 06:11 | disposition home or self-care (01) ==
PROVIDERS: Emergency Provider Physician Assistant; PCP Family Medicine
DX: L03.213 Periorbital cellulitis (principal); F17.210 Nicotine dependence, cigarettes, uncomplicated
CPT/HCPCS: 36415; 70450; 70487; 80048; 85025; 85652; 86140; 96374; 99284; A9270; J1885; Q9967

== ENCOUNTER 2023-10-01 19:33 | Emergency (ER) | payer OTHER, SELFPAY ==
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
[2023-10-01 19:43] VITALS: BP 115/80; PULSE 97; RESP 16; TEMP 36.5; O2SAT 100
== END 2023-10-01 19:55 | disposition home or self-care (01) ==
PROVIDERS: Emergency Provider Nurse Practitioner Family; PCP Internal Medicine Gastroenterology
DX: S00.211A Abrasion of right eyelid and periocular area, initial encounter (principal); S00.81XA Abrasion of other part of head, initial encounter; Y04.8XXA Assault by other bodily force, initial encounter; F17.210 Nicotine dependence, cigarettes, uncomplicated
CPT/HCPCS: 99213; G0463

== ENCOUNTER 2024-01-11 22:18 | Emergency (ER) | payer OTHER, SELFPAY ==
[2024-01-11 22:14] VITALS: BP 139/103; PULSE 96; RESP 23; TEMP 36.4; O2SAT 98
[2024-01-11 22:23] VITALS: PULSE 93; RESP 22; O2SAT 98
[2024-01-11] MEDS: LORazepam INJ (*CRX) 2 MG/ML VIAL 1 MG IV PUSH (22:41)
[2024-01-11] MEDS: SODIUM CHLORIDE 0.9% IV 2,000 ML 999 ML IV CONT (22:41)
[2024-01-11 22:45] LABS: Basophils Percent Auto 0.4 % (0.2-1.2); Eosinophils Absolute Auto 0.5 K/mm3 (0-0.3); Eosinophils Percent Auto 5.6 % (0-4.4); Hemoglobin 13.5 g/dL (12.0-15.0); Immature Granulocyte Absolute 0.02 K/mm3 (0.00-0.031); Immature Granulocyte Percent A 0.2 % (0-0.5); Lymphocytes Absolute Auto 2.96 K/mm3 (0.9-3.2); Mean Corpuscular HGB Conc 32.9 g/dl (32-36); Mean Corpuscular Hemoglobin 31.3 pg (26-34); Mean Corpuscular Volume 94.9 fl (80-100); Mean Platelet Volume 9.2 fl (7.4-10.4); Monocytes Absolute Auto 0.7 K/mm3 (0.1-0.6); Neutrophils Absolute Auto 4.1 K/mm3 (1.3-6.7); Neutrophils Percent Auto 49.8 % (45.5-73.1); Platelet Count Result 376 k/mm3 (150-375); Red Blood Count 4.32 M/mm3 (4.2-5.4); Red Cell Distribution Width 12.4 % (11.5-14.5); White Blood Count 8.2 K/mm3 (4.5-10.0)
[2024-01-11 23:01] LABS: Alanine Aminotransferase 21 U/L (6-35); Albumin Level 4.9 g/dL (3.5-5.1); Alkaline Phosphatase 74 U/L (38-126); Anion Gap 12 mmol/L (4-12); Aspartate Amino Transferase 39 U/L (14-36); Bilirubin,Total 0.3 mg/dL (0.2-1.3); Blood Urea Nitrogen 17 mg/dL (7-17); Calcium 9.4 mg/dL (8.4-10.2); Carbon Dioxide 21 mmol/L (22-30); Chloride 109 mmol/L (98-107); Estimated CRCL calculation 78 ml/min; Estimated Glomerular Filt Rate > 60; Ethanol 284 mg/dL (<10); Glucose 114 mg/dL (65-110); Potassium 3.7 mmol/L (3.4-5.0); Sodium 142 mmol/L (137-145)
[2024-01-11 23:38] VITALS: BP 116/80; PULSE 88; RESP 13; O2SAT 96
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
[2024-01-12 01:49] VITALS: BP 116/94; PULSE 68; RESP 18; O2SAT 97
[2024-01-12 07:04] VITALS: BP 132/93; PULSE 70; RESP 15; O2SAT 97
== END 2024-01-12 07:05 | disposition home or self-care (01) ==
PROVIDERS: Emergency Provider Emergency Medicine; PCP Internal Medicine Gastroenterology
DX: F15.90 Other stimulant use, unspecified, uncomplicated (principal); F10.90 Alcohol use, unspecified, uncomplicated; Y90.8 Blood alcohol level of 240 mg/100 ml or more; F17.210 Nicotine dependence, cigarettes, uncomplicated
CPT/HCPCS: 36415; 80053; 80307; 85025; 96361; 96374; 99284; J2060; J7030

== ENCOUNTER 2024-02-25 18:54 | Emergency (ER) | payer OTHER, SELFPAY ==
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
[2024-02-25 19:07] VITALS: BP 140/98; PULSE 103; RESP 16; TEMP 37.2; O2SAT 99
== END 2024-02-25 19:23 | disposition home or self-care (01) ==
PROVIDERS: Emergency Provider Nurse Practitioner; PCP Internal Medicine Gastroenterology
DX: Z71.1 Person with feared health complaint in whom no diagnosis is made (principal); Z32.02 Encounter for pregnancy test, result negative
CPT/HCPCS: 81025; 99212; G0463

== ENCOUNTER 2024-06-20 13:23 | Emergency (ER) | payer OTHER, SELFPAY ==
[2024-06-20 13:37] VITALS: BP 140/103; PULSE 98; RESP 16; O2SAT 97
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
[2024-06-20] MEDS: FLUORESCEIN SOD 1 MG/STRIP LEFT EYE (13:54)
[2024-06-20] MEDS: TETRACAINE HCL 0.5% OPHTH SOLN 4 ML BTL LEFT EYE (13:55)
[2024-06-20] MEDS: DACRIOSE EYE IRRIGATION 118 ML BOTTLE LEFT EYE (13:55)
== END 2024-06-20 14:05 | disposition home or self-care (01) ==
PROVIDERS: Emergency Provider Nurse Practitioner Family; PCP Internal Medicine Gastroenterology
DX: S05.02XA Injury of conjunctiva and corneal abrasion without foreign body, left eye, initial encounter (principal); W22.8XXA Striking against or struck by other objects, initial encounter; F17.210 Nicotine dependence, cigarettes, uncomplicated
CPT/HCPCS: 99213; A9270; G0463

== ENCOUNTER 2024-08-19 14:20 | Emergency (ER) | payer OTHER, SELFPAY ==
--- NOTE | ~2024-08-19 | CT_ITS ---
CT orbit BI wo con DATE: 08/19/2024 18:55 INDICATION: Left eye globe rupture suspected TECHNIQUE: Axial noncontrast CT images through the orbits. Sagittal and coronal reconstructions. Exam dose: 258.13 mGy-cm total exam DLP. COMPARISON: None FINDINGS: The ocular globes appear symmetric and unremarkable. The extraocular muscles and optic nerv es are symmetric. No intraconal or extraconal orbital mass lesion is detected. The frontal bones, frontozygomatic sutures, orbital rims and temple, nasal bones, anterior nasal spine , zygomatic arches, maxillary bones, pterygoid plates, temporomandibular joints and mandible are all intact, without fracture. There is mildly opacification of the right maxillary sinus, minimal mucoperiosteal thickening along t he medial wall of the left maxillary sinus and occasional focal areas of soft tissue thickening of th e ethmoid air cells. The frontal and sphenoid sinuses are normal. The right mastoid air cells are wel l-developed and aerated. There is limited development and aeration of the left mastoid air cells. Mid dle and inner ear apparatus appear unremarkable bilaterally. IMPRESSION: No significant abnormality of the orbits is noted Reviewed, dictated and finalized at [facility] Reviewed, dictated and finalized at [facility] [employer]
[2024-08-19 14:26] VITALS: BP 141/92; PULSE 101; RESP 18; TEMP 36.4; O2SAT 99
--- NOTE | 2024-08-19 16:13 | PC.NURSE ---
Addendum entered by Elena Oliver RN 08/19/24 16:21: Dr. Lee notified. Original Note: Pt. refusing visual acuity exam at this time.
[2024-08-19] MEDS: ACETAMINOPHEN 500 MG TABLET 1000 MG PO (16:22)
[2024-08-19 17:43] VITALS: BP 132/80; PULSE 76; RESP 16; TEMP 36.4; O2SAT 98
[2024-08-19] MEDS: levoFLOXacin 750 MG/D5W 150 ML 750 MG/150 ML BAG 100 MG IVPB (17:49)
[2024-08-19 18:33] LABS: Basophils Percent Auto 0.3 % (0.2-1.2); Eosinophils Absolute Auto 0.3 K/mm3 (0-0.3); Eosinophils Percent Auto 2.2 % (0-4.4); Hematocrit 39.6 % (37.0-47.0); Hemoglobin 13.2 g/dL (12.0-15.0); Immature Granulocyte Absolute 0.02 K/mm3 (0.00-0.031); Immature Granulocyte Percent A 0.2 % (0-0.5); Lymphocytes Absolute Auto 2.11 K/mm3 (0.9-3.2); Lymphocytes Percent Auto 17.4 % (18.3-44.2); Mean Corpuscular HGB Conc 33.3 g/dl (32-36); Mean Corpuscular Hemoglobin 31.3 pg (26-34); Mean Corpuscular Volume 93.8 fl (80-100); Monocytes Absolute Auto 0.9 K/mm3 (0.1-0.6); Monocytes Percent Auto 7.4 % (2.6-8.5); Neutrophils Absolute Auto 8.8 K/mm3 (1.3-6.7); Neutrophils Percent Auto 72.5 % (45.5-73.1); Platelet Count Result 345 k/mm3 (150-375); Red Blood Count 4.22 M/mm3 (4.2-5.4); Red Cell Distribution Width 12.5 % (11.5-14.5); White Blood Count 12.2 K/mm3 (4.5-10.0)
--- NOTE | 2024-08-19 18:40 | PC.NURSE ---
Pt. to CT.
[2024-08-19 18:43] LABS: Alanine Aminotransferase 15 U/L (6-35); Albumin Level 4.5 g/dL (3.5-5.1); Alkaline Phosphatase 87 U/L (38-126); Anion Gap 6 mmol/L (4-12); Aspartate Amino Transferase 34 U/L (14-36); Bilirubin,Total 0.5 mg/dL (0.2-1.3); Blood Urea Nitrogen 17 mg/dL (7-17); Calcium 9.4 mg/dL (8.4-10.2); Carbon Dioxide 23 mmol/L (22-30); Chloride 105 mmol/L (98-107); Estimated CRCL calculation 84 ml/min; Estimated Glomerular Filt Rate > 60; Glucose 116 mg/dL (65-110); Potassium 3.8 mmol/L (3.4-5.0); Sodium 134 mmol/L (137-145)
--- NOTE | 2024-08-19 18:43 | PC.NURSE ---
Report called to MASOOD Amaya at [facility]. All questions answered.
[2024-08-19 18:51] LABS: INR 0.9; Prothrombin Time 12.3 Seconds (11.1-14.7)
--- NOTE | 2024-08-19 19:31 | PC.NURSE ---
EDP Dr. Vane COATES 21mg transderm nicotine patch.
[2024-08-19] MEDS: NICOTINE (*PBKC) 21 MG PATCH 1 PATCH (19:34)
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
== END 2024-08-19 20:32 | disposition short-term general hospital (02) ==
PROVIDERS: Emergency Provider Student in an Organized Health Care Education/Training Program; PCP Internal Medicine Gastroenterology
DX: S05.32XA Ocular laceration without prolapse or loss of intraocular tissue, left eye, initial encounter (principal); H20.00 Unspecified acute and subacute iridocyclitis; S05.02XA Injury of conjunctiva and corneal abrasion without foreign body, left eye, initial encounter; W22.8XXA Striking against or struck by other objects, initial encounter; F17.210 Nicotine dependence, cigarettes, uncomplicated; F41.9 Anxiety disorder, unspecified
CPT/HCPCS: 36415; 70480; 80053; 85025; 85610; 85730; 96365; 96366; 99284; A9270; J1956

== ENCOUNTER 2024-11-23 01:07 | Emergency (ER) | payer OTHER, SELFPAY ==
--- NOTE | ~2024-11-23 | CT_ITS ---
Non-contrast Head CT History: Head injury COMPARISON: 04/23/2023 Technique: Axial non-contrast imaging of the brain was performed. Dose reduction technique was used on this scan by utilizing automated exposure control and iterative reconstruction technique. The dose -length product (DLP) was 605.33 mGy-cm. Findings: There is no evidence of intracranial hemorrhage, mass lesion, or acute infarct. Brain par enchyma appears normal. The ventricles and subarachnoid spaces are normal in size. The calvarium ap pears normal. The visualized paranasal sinuses and mastoid air cells are clear. Impression: No significant abnormality seen. Reviewed, dictated and finalized at location . Impression: No significant abnormality seen.
--- NOTE | ~2024-11-23 | CT_ITS ---
Noncontrast CT scan of the cervical spine Technique: Multiple contiguous axial [address] images of the cervical spine were obtained and rec onstructed in 2D sagittal and coronal planes on the acquisition scanner. Dose reduction technique was used on this scan by utilizing automated exposure control, adjustment of the mA and/or kV according to patient size. The dose-length product (DLP) was 142.98 mGy-cm. Clinical History: Pain Findings: No fractures or dislocations. There are minimal degenerative disc changes in the cervical spine. No prevertebral soft tissue swelling. Impression: No fracture or subluxation of the cervical spine. Reviewed, dictated and finalized at location M. Impression: No fracture or subluxation of the cervical spine.
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
[2024-11-23 01:08] VITALS: BP 131/95; PULSE 105; RESP 20; TEMP 36.6; O2SAT 100
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
[2024-11-23 02:10] VITALS: RESP 16; O2SAT 99
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
--- OUTSIDE RECORDS SUMMARY | 2024-11-23 02:52 | XMS_ITS | Patient Health Record ---
Author Organization [facility]ly [facility] Address [address] [place] [address] Care Team Providers Care Ward Nurse Name Role Phone Ev Tellez Primary Care Provider Reason For Referral No Information Plan Of Treatment No Information
--- OUTSIDE RECORDS SUMMARY | 2024-11-23 02:52 | XMS_ITS | Encounter Summary ---
Author Organization [facility] Health Address [address] [place] [address] Care Team Providers Care Ice Resurfacing Machine Operators Name Role Phone Caleb Blue MD Primary Care Provider + [phone] Encounter Details Date Type Department Care Team (Late st Contact Info) Description 04/21/2023 Ophth Exam [facility] - Ophthalmology [address] [place] [address] Remigio Ortega MD [address] [facility] [place] [address] Social History Tobacco Use Types Packs/Day Years Used Date Smoking Tobacco: Every Day Cigarettes Alcohol Use Standard Drinks/Week Comments Yes 0 (1 standard drink = 0.6 oz pur e alcohol) every other day AUDIT-C Answer Date Recorded Q1: How often do you have a drink containing alcohol? 4 or more times a week 09/27/2022 Q2: How many drinks containi ng alcohol do you have on a typical day when you are drinking? 5 or 6 3 Q3: How often do you have si x or more drinks on one occasion? Daily or almost daily 09/27/2022 Overall Financial Resource Strain (CARDIA) Answe r Date Recorded How hard is it for you to pa y for the very basics like food, housing, medical care, and heating? Somewhat hard 09/28/2022 [facility] of Occupat ional Health - Occupational Stress Questionnaire Answer Date Recorded Do you feel stress - tense, restless, nervous, or anxious, or unable to sleep at night because your mind is troubled all the time - these days? Very much 09/28/2022 Hunger Vital Sign Answer Date Recorded Within the past 12 months, y ou worried that your food would run out before you got the money to buy more. Never true 09/28/19 23 Within the past 12 months, t he food you bought just didn't last and you didn't have money to get more. Never true 09/28/2022 PRAPARE - Transportation Answer Date Re corded In the past 12 months, has l ack of transportation kept you from medical appointments or from getting medications? Yes 09/12 In the past 12 months, has l ack of transportation kept you from meetings, work, or from getting things needed for daily living? Yes 09/28/2022 Housing Stability Vital Sign Answer Selwyn e Recorded In the last 12 months, was t here a time when you were not able to pay the mortgage or rent on time? Yes 09/29/2022 In the last 12 months, how many places have you lived? 1 09/29/2022 In the last 12 months, was t here a time when you did not have a steady place to sleep or slept in a usp (including now)? Yes 09/29/2022 Sex and Gender Information Value Date Recorded Sex Assigned at Not on file Gender Identity Not on file Sexual Orientation Not on file documented as of this encounter Functional Status Functional Status Response Date of Assess ment Is person deaf or have serious hearing difficult y? No 09/28/2022 Is person blind or have serious difficulty seein g? No 09/28/2022 Does person have serious dif ficulty walking/climbing stairs? Yes 09/28/2022 Does person have difficulty dressing/bathing? Ye s 09/28/2022 Does person have difficulty doing errands alone? Yes 09/28/2022 Cognitive Status Response Date of Assessm ent Does person have difficulty concentrating/remembering/making decisions? Yes 09/28/2022 documented as of this encounter Plan of Treatment Not on file documented as of this encounter Visit Diagnoses Not on filedocumented in this encounter Care Teams Ice Resurfacing Machine Operators Relationship Specialty Start Date End Date Caleb Blue MD [address] [place] [address] PCP - General Gastroenterology 12/15/15 documented as of this encounter
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
--- OUTSIDE RECORDS SUMMARY | 2024-11-23 02:52 | XMS_ITS | Encounter Summary ---
Author Organization [facility] Health Address [address] [place] [address] Care Team Providers Care Ornamental Ironworking Supervisor Name Role Phone Caleb Blue MD Primary Care Provider + [phone] Encounter Details Date Type Department Care Team (Late st Contact Info) Description 08/20/2024 Ophth Exam [facility] - Ophthalmology [address] [place] [phone] Nick Mcleod MD [address] [place] [address] Social History Tobacco Use Types Packs/Day Years [...] medical care, and heating? Somewhat hard 09/28/2022 [facility] [place] of Occupat ional Health - Occupational Stress [...] place to sleep or slept in a group home (including now)? Yes 09/29/2022 Sex and Gender [...] on filedocumented in this encounter Care Teams Ornamental Ironworking Supervisor Relationship Specialty Start Date End Date Caleb Blue MD [address] [place] [phone] PCP - General Gastroenterology 12/15/15 documented as of this encounter
--- OUTSIDE RECORDS SUMMARY | 2024-11-23 02:52 | XMS_ITS | Referral Summary ---
Author Organization [facility] [employer] Address [address] [place] [address] Care Team Providers Care Dairy And Food Laboratory Assistant Name Role Phone Caleb Blue MD Primary Care Provider Source Comments [facility],non-owned Affiliates and Associated Physician Practices is amultiple site organization consisting of ambulatory clinics and hospital sitesin [place], [place], [place] and [place]. This disclosure is being madepursuant to the Care Everywhere program and may not contain all information available regarding this patient. Last updated 18.[facility] [employer] Allergies Active Allergy Reactions Criticality Noted Date [...] Pt sates she received tdap 1yr ago) Social History Tobacco Use Types Packs/Day Years [...] medical care, and heating? Somewhat hard 09/28/2022 [facility] [place] of Occupat ional Health - Occupational Stress [...] place to sleep or slept in a fpc (including now)? Yes 09/29/2022 Sex and Gender Information Value Date Recorded Sex Assigned at Not on file Gender Identity Not on file Sexual Orientation Not on file Last Filed Vital Signs Vital Sign Reading Time Taken Comments Blood Pressure 110/86 08/20/2024 3:30 AM RN HEART Pulse 95 08/19/2024 9:14 PM RN HEART Temperature 36.8 C (98.2 F) 08/19/2024 9:14 PM RN HEART Respiratory Rate 18 08/19/2024 9:14 PM RN HEART Oxygen Saturation 98% 08/20/2024 3:30 AM RN HEART Inhaled Oxygen Concentration - - Weight 49.9 kg (110 lb) 08/19/2024 9:14 PM RN HEART Height 157.5 cm (5' 2 ) 08/19/2024 9:14 PM RN HEART Body Mass Index 20.12 08/19/2024 9:14 PM RN HEART Functional Status Functional Status Response Date of [...] person have difficulty concentrating/remembering/making decisions? Yes 09/28/2022 Plan of Treatment Not on file Advance Directives * Full Code (Latest Code Status on File) Date Activated Date Inactivated Comments 09/26/2022 11:34 PM 09/29/2022 3:37 PM Care Teams Dairy And Food Laboratory Assistant Relationship Specialty Start Date End Date Caleb Blue MD [address] [place] [address] PCP - General Gastroenterology 12/15/15
--- OUTSIDE RECORDS SUMMARY | 2024-11-23 02:52 | XMS_ITS | Patient Health Summary ---
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 PM, LOCATION [facility] INDICATION: Trauma ADDITIONAL CLINICAL INFORMATION: Ordering Provider Reason For Exam: Technologist Note: Additional: COMPARISON: None. TECHNIQUE: CT of the cervical spine was performed utilizing standard protocol. Sagittal and coronal reformatted images were rendered. CT dose reduction technique was used, including Automated Exposure Control. FINDINGS: Alignment is normal. There are no compression fractures or suspicious lytic or blastic lesions. Posterior vertebral elements appear intact. There is no severe spinal canal or neuroforaminal stenosis. There is partially visualized pneumomediastinum and air dissecting through this disc spaces of the neck. Procedure Note Nicola Castle MD - 09/26/2022 PROCEDURE: CT CERVICAL SPINE WO CONTRAST, DATE/TIME OF EXAM: 09/26/2022 8:09 PM, LOCATION [facility] INDICATION: Trauma ADDITIONAL CLINICAL INFORMATION: Ordering Provider Reason For Exam: Technologist Note: Additional: COMPARISON: None. TECHNIQUE: CT of the cervical spine was performed utilizing standard protocol. Sagittal and coronal reformatted images were rendered. CT dose reduction technique was used, including Automated ExposureControl. FINDINGS: Alignment is normal. There are no compression fractures or suspicious lytic or blastic lesions. Posterior vertebral elements appear intact. There is no severe spinal canal or neuroforaminal stenosis. There is partially visualized pneumomediastinum and air dissecting through thisdisc spaces of the neck. IMPRESSION: No evidence for cervical spine fracture or traumatic malalignment. > Interpreting Provider: Nicola Castle MD on 09/26/2022 8:35 PM Jarocho Pina MD CT ORDERABLES * CT HEAD WO CONTRAST - Head Trauma, CSF leak, mental status changes (09/26/2022 8:05 PM HEAVY TRUCK MECHANIC) Anatomical Region Laterality Modality Head Computed Tomogra phy 09/26/2022 8:30 PM HEAVY TRUCK MECHANIC Impressions 09/26/2022 8:32 PM HEAVY TRUCK MECHANIC IMPRESSION: No intracranial hemorrhage or other acute abnormality by CT. > Interpreting Provider: Nicola Castle MD on 09/26/2022 8:32 PM Narrative 09/26/2022 8:32 PM HEAVY TRUCK MECHANIC PROCEDURE: CT HEAD WO CONTRAST, DATE/TIME OF EXAM: 09/26/2022 8:09 PM, LOCATION [facility] INDICATION: Trauma ADDITIONAL CLINICAL INFORMATION: Ordering Provider Reason For Exam: Technologist Note: Additional: COMPARISON: None. TECHNIQUE: Noncontrast CT brain was performed utilizing standard protocol. CT dose reduction technique was used, including Automated Exposure Control. FINDINGS: Images are degraded by motion and streak artifact. No acute intra- or extra-axial fluid collections are identified. The ventricles are of normal size, shape, and morphology. The basilar cisterns are patent. No mass effect or midline shift is seen. The stout-white matter differentiation is normal. Visualized portions of the orbits, paranasal sinuses, and mastoids appear normal. No acute fracture is identified. There is partially visualized air in the parapharyngeal soft tissues. Procedure Note Nicola Castle MD - 09/26/2022 PROCEDURE: CT HEAD WO CONTRAST, DATE/TIME OF EXAM: 09/26/2022 8:09 PM, LOCATION [facility] INDICATION: Trauma ADDITIONAL CLINICAL INFORMATION: Ordering Provider Reason For Exam: Technologist Note: Additional: COMPARISON: None. TECHNIQUE: Noncontrast CT brain was performed utilizing standard protocol. CT dose reduction technique was used, including Automated ExposureControl. FINDINGS: Images are degraded by motion and streak artifact. No acute intra- or extra-axial fluid collections are identified. The ventricles are ofnormal size, shape, and morphology. The basilar cisterns are patent. No mass effect or midline shift is seen. The stout-white matter differentiationis normal. Visualized portions of the orbits, paranasal sinuses, andmastoids appear normal. No acute fracture is identified. There is partially visualized air in the parapharyngeal soft tissues. IMPRESSION: No intracranial hemorrhage or other acute abnormality by CT. > Interpreting Provider: Nicola Castle MD on 09/26/2022 8:32 PM Jarocho Pina MD CT ORDERABLES Care Teams Surgical Instrument Repair Specialist Relationship Specialty Start Date End Date Caleb Blue MD [address] [place] [id number] PCP - General Gastroenterology 12/15/15
[2024-11-23 04:05] VITALS: BP 106/64; PULSE 78; RESP 13; O2SAT 98
== END 2024-11-23 04:07 | disposition home or self-care (01) ==
PROVIDERS: Emergency Provider Emergency Medicine; PCP Internal Medicine Gastroenterology
DX: S09.93XA Unspecified injury of face, initial encounter (principal); Y04.2XXA Assault by strike against or bumped into by another person, initial encounter; F17.210 Nicotine dependence, cigarettes, uncomplicated
CPT/HCPCS: 70450; 71045; 72125; 99284

== ENCOUNTER 2025-02-13 15:29 | Emergency (ER) | payer OTHER, SELFPAY ==
--- NOTE | ~2025-02-13 | XR_ITS ---
XR chest 2V 02/13/2025 16:13 Indication: Productive cough for 2 weeks. Procedure: 2 view chest Comparison: 11/23/2024 Findings: There is left lower lobe pneumonia. Heart size normal. Right lung clear. No significant eff usion or pneumothorax. Impression: 1: Left lower lobe pneumonia. Reviewed, dictated and finalized at location A. Impression: 1: Left lower lobe pneumonia.
[2025-02-13 15:38] VITALS: BP 141/103; PULSE 107; RESP 16; TEMP 37.2; O2SAT 97
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
[2025-02-13 16:50] VITALS: BP 108/56
== END 2025-02-13 16:51 | disposition home or self-care (01) ==
PROVIDERS: Emergency Provider Registered Nurse; PCP Internal Medicine Gastroenterology
DX: J18.9 Pneumonia, unspecified organism (principal); F17.210 Nicotine dependence, cigarettes, uncomplicated
CPT/HCPCS: 71046; 99213; G0463

== ENCOUNTER 2025-04-29 12:55 | Emergency (ER) | payer OTHER, SELFPAY ==
[2025-04-29 13:05] VITALS: BP 155/93; PULSE 97; RESP 20; TEMP 36.8; O2SAT 100
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
== END 2025-04-29 14:27 | disposition short-term general hospital (02) ==
PROVIDERS: Emergency Provider Nurse Practitioner Family
DX: N63.0 Unspecified lump in unspecified breast (principal); F17.210 Nicotine dependence, cigarettes, uncomplicated
CPT/HCPCS: 99212; G0463